=== PATIENT | male | born 1995 | race Caucasian/White ===

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

== ENCOUNTER → 2017-11-02 | Day surgery (SDC) | payer OTHER ==
[~2017-11-02] VITALS: Ht 193 cm; Wt 83.9 kg
--- NOTE | 2017-11-02 19:54 | Operative Report ---
Operative/Inv Procedure Report Surgery Date: 11/02/17 Name of Procedure: Closed reduction nasal fracture Pre-Operative Diagnosis: Nasal fracture Post-Operative Diagnosis: Same Estimated Blood Loss: scant Surgeon/Financial Professional: Malini Smith MD Anesthesia: laryngeal mask airway Complications: Non- Condition: Stable on leaving the OR Operative Indication: Displaced Nasal fracture with nasal deformity Operative/Procedure Note Note: The patient was brought to the operating room. Placed on the operating room table in supine position. At first timeout was performed identifying the patient, ID numbers and procedure to be performed. Next general LMA anesthesia was induced. LMA tube was secured with tape over the left oral commissure. Operating room table was left in the midline with head toward the anesthesia. At first vasoconstriction was carried by application of Afrin spray on cottonoid pledgets. Next patient's face was draped in a sterile fashion. Cottonoid pledgets were removed. Examination of the nose revealed depressed nasal wall on the left and bony deformity on the right. Overall dorsum appears to be deviated to the right. Septum was deviated to the right with obstruction of right nasal fossa. On the left there was depressed nasal wall with obstruction of left nasal airway. [place] elevator was inserted into the nasal fossa with elevation of the left lateral nasal wall bone and shifting it over to the left with reduction of the fracture. There was an old fracture on the right with some bony deformity. This would not reduce. Reduction of nasal dorsum and allowed for improvement in left nasal airway. Examination of the nose revealed nasal bones to be in the midline with palpable bony irregularity on the right. 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 Left nasal airway was improved. A brisk nosebleed was encountered which resolved by application of cotton pledgets saturated with Afrin. Mastisol was applied to the nasal dorsum followed by placement of cloth tape. Next plaster splint was shaped into the size of the nasal dorsum soaked in warm water and applied to the nasal dorsum. It was held in place until plaster firmed up and became molded with underlying tape. Reexamination of the nasal fossa revealed no additional bleeding. Surgery was completed. The patient was reawakened, extubated and taken to the recovery room in good condition. There were no complications. Estimated blood was was scant. Findings: Depressed left lateral nasal wall with obstruction of left nasal fossa Nasal dorsal deformity with depression on the left Old right nasal bone fracture with deformity on palpation Discharge Disposition: PACU
== END ==
LOC: STS 02:59
DX: S02.2XXA Fracture of nasal bones, initial encounter for closed fracture (principal); W20.8XXA Other cause of strike by thrown, projected or falling object, initial encounter; J34.2 Deviated nasal septum
CPT/HCPCS: J0690; J2250